=== PATIENT | female | born 1970 | race Caucasian/White ===

== ENCOUNTER → 2023-11-02 | Day surgery (SDC) | payer OTHER ==
[~2023-11-02] VITALS: Ht 162.6 cm; Wt 90.7 kg
[~2023-11-02] MED LIST: IBUP-1022 PO; LIDOCAINE 2% 100MG/5ML SDV (FOR ANES.) As Ordered ONE; MULTTAB61 PO; OSTETAB3 PO; TOTAL BEETS PO; [UNRECOGNIZED DRUG - OTHER]; [UNRECOGNIZED DRUG - REMARK]; propofoL 200 MG/20 ML VIAL As Ordered ONE
[2023-11-02] MEDS: NS 1,000 ML IV ONE (09:38)
[2023-11-02 11:38] VITALS: TEMP 97.2
[2023-11-02 12:00] VITALS: BP 137/77; O2SAT 98
== END | disposition home or self-care (01) ==
LOC: M OPP 09:10
PROVIDERS: ATTEND Surgery
DX: Z12.11 Encounter for screening for malignant neoplasm of colon (principal); K64.4 Residual hemorrhoidal skin tags; K64.8 Other hemorrhoids; D12.0 Benign neoplasm of cecum; K22.89 Other specified disease of esophagus; K31.89 Other diseases of stomach and duodenum; E04.1 Nontoxic single thyroid nodule; K76.0 Fatty (change of) liver, not elsewhere classified; F12.20 Cannabis dependence, uncomplicated; Z79.899 Other long term (current) drug therapy